=== PATIENT | female | born 2000 | race Caucasian/White ===

== ENCOUNTER 2019-04-12 10:12 | Day surgery (SDC) | payer BC ==
[~2019-04-12 10:12] MED LIST: CEFAZOLIN 1 GM/50 ML (PMX) 50 ML IVPB; LACTATED RINGER'S 1,000 ML (ENTER RATE) IV
[2019-04-12] MEDS ORDERED: CEFAZOLIN 1 GM INJ ×2 (13:40→14:13)
[2019-04-12] MEDS ORDERED: MEPERIDINE 100 MG INJ (13:40)
[2019-04-12] MEDS ORDERED: PROPOFOL 20 ML (13:40)
[2019-04-12] MEDS ORDERED: LIDOCAINE 2% (SDV) 5 ML INJ (13:40)
[2019-04-12] MEDS ORDERED: EPINEPHrine 1 MG/ML 30 ML INJ (13:48)
[2019-04-12] MEDS ORDERED: ONDANSETRON 4 MG INJ (14:13)
[2019-04-12] MEDS ORDERED: METOCLOPRAMIDE 10 MG INJ (14:13)
[2019-04-12] MEDS: LIDOCAINE 1%/EPI 30 ML INJ (14:43)
[2019-04-12] MEDS ORDERED: FENTAnyl 50 MCG/ML VIAL IV ×2 (15:30)
[2019-04-12] MEDS ORDERED: MIDAZOLAM 1 MG/ML 2 ML INJ IV (15:30)
[2019-04-12] MEDS ORDERED: OXYCODONE/ACETAMINOPHEN (5/325) TAB PO (15:30)
[2019-04-12] MEDS ORDERED: HYDROmorphONE 1 MG/5 ML IV SYRINGE IV ×3 (15:30)
[2019-04-12] MEDS ORDERED: DIPHENHYDRAMINE 50 MG INJ IV (15:30)
[2019-04-12] MEDS ORDERED: ONDANSETRON 4 MG INJ IV (15:30)
[2019-04-12] MEDS ORDERED: MEPERIDINE 25 MG INJ IV (15:30)
[2019-04-12] MEDS ORDERED: METOCLOPRAMIDE 10 MG INJ IV (15:30)
[2019-04-12] MEDS: FENTAnyl 50 MCG/ML VIAL IV (15:54)
[2019-04-12] MEDS: OXYCODONE/ACETAMINOPHEN (5/325) TAB PO (17:08)
== END 2019-04-12 18:18 | disposition home or self-care (01) ==
LOC: SDS 10:12
DX: M67.462 Ganglion, left knee (principal)
CPT/HCPCS: 27328; 84703; 88304